=== PATIENT | female | born 1955 | race Caucasian/White ===

== ENCOUNTER → 2021-12-15 | Outpatient (CLI) | payer MEDICARE ==
[2021-12-16 13:54] LABS: Calcium, Urine 17.6 mg/dL (< 17.5); Calcium, Urine Calculation 140.8 mg/24hrs (42.0-353.0)
[2021-12-16 14:09] LABS: Creatinine Urine 84.3 mg/dL (27.00-270.00)
== END | disposition home or self-care (01) ==
LOC: LAB SHORT 08:30 → LAB 08:30
PROVIDERS: Internal Medicine Endocrinology, Diabetes & Metabolism
DX: M81.0 Age-related osteoporosis without current pathological fracture (principal)
CPT/HCPCS: 81050; 82340; 82570

== ENCOUNTER → 2022-01-14 | Outpatient (CLI) | payer MEDICARE | END | disposition home or self-care (01) | LOC: LAB 08:40 → LAB SHORT 08:40 | PROVIDERS: Nurse Practitioner Family | DX: G89.4 Chronic pain syndrome (principal) | CPT/HCPCS: G0480 ==